=== PATIENT | female | born 2000 | race Caucasian/White ===

== ENCOUNTER 2022-03-14 18:04 | Emergency (ER) | payer OTHER ==
[~2022-03-14] VITALS: Ht 160 cm; Wt 47.2 kg
[2022-03-14] MEDS ORDERED: CLEOCIN HCL300 MG PO (22:31)
[2022-03-14] MEDS ORDERED: ULTRACET PO (22:31)
== END 2022-03-14 22:43 | disposition home or self-care (01) ==
LOC: ER 18:04 → EMR PED 18:38 → ER 18:38 → EMR PED 22:43
DX: S81.022A Laceration with foreign body, left knee, initial encounter (principal); W18.30XA Fall on same level, unspecified, initial encounter; Y93.66 Activity, soccer; Y92.322 Soccer field as the place of occurrence of the external cause